=== PATIENT | female | born 1985 | race Caucasian/White ===

== ENCOUNTER 2017-02-16 03:01 | Emergency (ER) | payer OTHER ==
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
[2017-02-16] MEDS: ACETAMINOPHEN TAB 500 MG TAB PO STA (03:38)
[2017-02-16] MEDS: LORazepam 1 MG TAB PO STA (03:39)
[2017-02-16] MEDS: DIPH,PERTUS(ACELL)TETVAC-LF 0.5 ML VIAL IM ONE (03:43)
[2017-02-16] MEDS ORDERED: LIDOCAINE/EPINEPHR/TETRACAINE 5 ML BOTTLE TOPICAL ONE (03:48)
[2017-02-16] MEDS: LIDOCAINE/EPINEPHR/TETRACAINE 5 ML BOTTLE TOPICAL ONE ×2 (03:50→03:53)
[2017-02-16 03:58] VITALS: RESP 16
--- NOTE | 2017-02-16 04:29 | CT ---
EXAM: CT Head Without Intravenous Contrast CLINICAL HISTORY: Reason: Pain TECHNIQUE: Axial computed tomography images of the head/brain without intravenous contrast. CTDI is 57.4 mGy and DLP is 961 mGy-cm. This CT exam was performed using one or more of the following dose reduction techniques: automated exposure control, adjustment of the mA and/or kV according to patient size, and/or use of iterative reconstruction technique. COMPARISON: CT 01/24/2016. FINDINGS: Brain: No hemorrhage. No acute cortical infarct. No mass effect or midline shift. Ventricles: Unremarkable. Bones/joints: No acute fracture. Soft tissues: Scalp soft tissue swelling. Sinuses: Mild sinus disease. Mastoid air cells: Unremarkable as visualized. IMPRESSION: 1. No intracranial hemorrhage or skull fracture. 2. Scalp soft tissue swelling. EXAM: CT Cervical Spine Without Intravenous Contrast CLINICAL HISTORY: Reason: Pain TECHNIQUE: Axial computed tomography images of the cervical spine without intravenous contrast. CTDI is 13.9 mGy and DLP is 316.9 mGy-cm. This CT exam was performed using one or more of the following dose reduction techniques: automated exposure control, adjustment of the mA and/or kV according to patient size, and/or use of iterative reconstruction technique. COMPARISON: CT 01/24/2016. FINDINGS: Vertebrae: No acute fracture. Slight reversal of the normal cervical lordosis. Discs/spinal canal/neural foramina: No critical spinal canal stenosis. Soft tissues: Unremarkable. Lung apices: Unremarkable as visualized. IMPRESSION: No acute fracture.
[2017-02-16 04:33] VITALS: BP 107/65; PULSE 89; TEMP 98.6
== END 2017-02-16 04:55 | disposition home or self-care (01) ==
LOC: EC 03:01
DX: S01.01XA Laceration without foreign body of scalp, initial encounter (principal); S01.81XA Laceration without foreign body of other part of head, initial encounter; S20.311A Abrasion of right front wall of thorax, initial encounter; S10.91XA Abrasion of unspecified part of neck, initial encounter; S40.012A Contusion of left shoulder, initial encounter; S80.11XA Contusion of right lower leg, initial encounter; S80.12XA Contusion of left lower leg, initial encounter; F17.200 Nicotine dependence, unspecified, uncomplicated; Z23 Encounter for immunization; Y04.0XXA Assault by unarmed brawl or fight, initial encounter; Y92.009 Unspecified place in unspecified non-institutional (private) residence as the place of occurrence of the external cause; Y93.01 Activity, walking, marching and hiking
CPT/HCPCS: 12002; 70450; 72125; 90471; 90715; 99285

== ENCOUNTER 2018-05-04 00:09 | Emergency (ER) | payer OTHER ==
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
[2018-05-04 01:20] LABS: Amphetamine Screen,Urine Not Detected (NotDetected); Barbiturate Screen,Urine Not Detected (NotDetected); Benzodiazepines Screen,Urine Not Detected (NotDetected); Cocaine Screen,Urine Not Detected (NotDetected); Methadone Screen, Urine Not Detected (NotDetected); Opiate Screen,Urine Not Detected (NotDetected); Oxycodone Screen, Urine Not Detected (NotDetected); Phencyclidine Screen,Urine Not Detected (NotDetected); Tricyclic Antidepressant,Urine Not Detected (NotDetected); Urn Cannabinoid Scrn Detected (NotDetected)
[2018-05-04 14:16] VITALS: BP 118/73; PULSE 64; RESP 18; TEMP 98.5
== END 2018-05-04 14:15 | disposition home or self-care (01) ==
LOC: EC 00:09
DX: F10.120 Alcohol abuse with intoxication, uncomplicated (principal); S10.91XA Abrasion of unspecified part of neck, initial encounter; X83.8XXA Intentional self-harm by other specified means, initial encounter; F17.200 Nicotine dependence, unspecified, uncomplicated
CPT/HCPCS: 72125; 80306; 82075; 99285

== ENCOUNTER 2019-08-15 04:25 | Emergency (ER) | payer OTHER ==
[2019-08-15 04:35] VITALS: BP 135/84; PULSE 57; RESP 18; TEMP 97.9
[2019-08-15] MEDS ORDERED: DIPH,PERTUS(ACELL)TETVAC-LF 0.5 ML VIAL IM ONE (04:46)
[2019-08-15] MEDS ORDERED: KETOROLAC 30 MG/ML 1 ML VIAL IVP STA (04:46)
[2019-08-15] MEDS ORDERED: AMPICILLIN-SULBACTAM 3 GM in SODIUM CHLORIDE 0.9% 100 ML IVPB STA (04:47)
[2019-08-15] MEDS ORDERED: LIDOCAINE 1% INJ 10MG/ML (20 ML MDV) SQ ONE (05:19)
[2019-08-15] MEDS ORDERED: MORPHINE SULFATE 4 MG/ML SYRINGE IVP STA (05:40)
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
--- NOTE | 2019-08-15 06:45 | XR ---
EXAMINATION TYPE: XR tibia fibula bilateral DATE OF EXAM: 08/15/2019 CLINICAL HISTORY: Dog bite injury with pain. TECHNIQUE: Two views of the bilateral legs are obtained. COMPARISON: None. FINDINGS: Right leg shows large defect consistent with penetrating or laceration injury level of the proximal fibular diaphysis lateral anterior aspect. Mild subcutaneous edema is present bilaterally gr eater on the left leg laterally. Some penetration or laceration injury to the left leg several levels is identified along the lateral and posterior aspect most prominent midshaft level. No radiodense fo reign body clearly seen bilaterally. Overlying pant material noted at bilateral knees. IMPRESSION: There are multiple soft tissue injuries without acute fracture or retained radiodense fo reign bodies bilaterally.
== END 2019-08-15 07:15 | disposition home or self-care (01) ==
LOC: EC 04:25
DX: S81.852A Open bite, left lower leg, initial encounter (principal); S81.851A Open bite, right lower leg, initial encounter; F17.200 Nicotine dependence, unspecified, uncomplicated; W54.0XXA Bitten by dog, initial encounter; Z53.8 Procedure and treatment not carried out for other reasons
CPT/HCPCS: 73590; 99283; 12005; 96365; 96375 ×2; J2270; J2001; J1885; J0295

== ENCOUNTER 2020-07-18 12:01 | Emergency (ER) | payer OTHER ==
[2020-07-18 12:05] VITALS: BP 132/84; PULSE 110; RESP 18; TEMP 98.5
--- NOTE | 2020-07-18 12:28 | ED ---
Recheck HPI - General Chief Complaint: Recheck/Abnormal Lab/Rx Stated Complaint: COVID exposure, wants test Time Seen by Provider: 07/18/20 12:09 Source: patient, RN notes reviewed Mode of arrival: ambulatory Limitations: no limitations - History of Present Illness Initial Comments: 34-year-old female presents emergency from requesting Covid testing. Patient states that he works at [employer] states that he was exposed with a known positive. Patient states she is asymptomatic. Denies fevers chills, bodyaches headache dizziness GI symptoms. Patient offers no other complaints. - Related Data Previous Rx's Medication Instructions Recorded Amoxic-Pot Clav 875-125Mg 1 tab PO Q12HR #20 tablet 08/15/19 [Augmentin 875-125] Allergies Allergy/AdvReac Type Severity Reaction Status Date / Time No Known Allergies Allergy Verified 07/18/20 12:05 Review of Systems ROS Statement: Those systems with pertinent positive or pertinent negative responses have been documented in the HPI. ROS Other: All systems not noted in ROS Statement are negative. Past Medical History Past Medical History: No Reported History History of Any Multi-Drug Resistant Organisms: None Reported Past Surgical History: No Surgical Hx Reported Past Psychological History: No Psychological Hx Reported Smoking Status: Current every day smoker Past Alcohol Use History: Occasional Past Drug Use History: Marijuana General Exam Limitations: no limitations General appearance: alert, in no apparent distress Head exam: Present: atraumatic, normocephalic, normal inspection Eye exam: Present: normal appearance, PERRL, EOMI. Absent: scleral icterus, conjunctival injection, periorbital swelling ENT exam: Present: normal exam, normal oropharynx, mucous membranes moist Neck exam: Present: normal inspection, full ROM. Absent: tenderness, meningismus, lymphadenopathy Respiratory exam: Present: normal lung sounds bilaterally. Absent: respiratory distress, wheezes, rales, rhonchi, stridor Cardiovascular Exam: Present: regular rate, normal rhythm, normal heart sounds. Absent: systolic murmur, diastolic murmur, rubs, gallop, clicks Course Vital Signs 07/18/20 12:03 Temperature 98.5 F Pulse Rate 110 H Respiratory 18 Rate Blood Pressure 132/84 O2 Sat by Pulse 100 Oximetry Medical Decision Making - Medical Decision Making Patient is asymptomatic, Covid testing was ordered patient will follow-up on results. Disposition Clinical Impression: Encounter for laboratory testing for COVID-19 virus Disposition: HOME SELF-CARE Condition: Stable Additional Instructions: Please return to the Emergency Department if symptoms worsen or any other concerns. Is patient prescribed a controlled substance at d/c from ED?: No Referrals: None,Stated [Primary Care Provider] - 1-2 days Time of Disposition: 12:28
== END 2020-07-18 13:01 | disposition home or self-care (01) ==
LOC: EC 12:01
DX: Z03.818 Encounter for observation for suspected exposure to other biological agents ruled out (principal); Z20.828 Contact with and (suspected) exposure to other viral communicable diseases; F17.200 Nicotine dependence, unspecified, uncomplicated
CPT/HCPCS: 99283; U0003